=== PATIENT | male | born 1980 | race Caucasian/White ===

== ENCOUNTER 2017-03-19 00:34 | Emergency (ER) | payer SELFPAY ==
[~2017-03-19] VITALS: Ht 190.5 cm; Wt 79.8 kg
[2017-03-19 00:36] VITALS: BP 144/93
== END 2017-03-19 03:30 | disposition left against medical advice (07) ==
LOC: EME 00:34
DX: M54.9 Dorsalgia, unspecified (principal); Z53.21 Procedure and treatment not carried out due to patient leaving prior to being seen by health care provider